=== PATIENT | male | born 1965 | race Two or more races ===

== ENCOUNTER 2025-01-23 22:27 | Emergency (ER) | payer MEDICAID ==
[~2025-01-23] VITALS: Ht 185.4 cm; Wt 103.4 kg
[2025-01-23 23:05] LABS: Hematocrit 44.8 % (41.0-53.0); Hemoglobin 15.9 g/dL (13.5-17.5); Mean Corpuscular Hemoglobin 31.8 pg (28.0-32.0); Mean Corpuscular Volume 89.2 fL (80.0-100.0); Nucleated Red Blood Cells % 0.2 %
--- NOTE | 2025-01-23 23:09 | ED.PDOC ---
General HPI Comments 59 year old male presents to the ED with a chief complaint of LT flank pain onset 2 days. Patient states he began experiencing LT flank pain radiates to LLQ 2 days ago as well as hematuria. Patient was seen at urgent care 1 day ago, was diagnosed with UTI. Patient was at work today, noticed pain had worsened, took Ibuprofen at 16:00 and 10 minutes prior to ED arrival, has not noticed improvement. PMHx HTN. Denies fever, chills, dysuria, nausea, vomiting, diarrhea, melena, hematemesis, headache, dizziness. No other associated symptoms, modifiers, recent injuries or sick contacts present at this time. Chief Complaint: Flank Pain Time Seen by MD: 22:55 Primary Care Provider: UNK Reviewed notes: Medications, Allergies Allergies: Coded Allergies: NO KNOWN ALLERGIES (Unverified , 12/18/13) Home Meds Active Scripts Sulfamethoxazole W/Trimethopri (Bactrim Ds Tablet) 1 Tab Tb, 1 TAB PO BID for 7 Days, #14 TAB Prov:BRAN WYNN MD 01/24/25 Tamsulosin Hcl (Flomax) 0.4 Mg Cap, 1 CAP PO DAILY for 30 Days, #30 CAP 11 Refills Prov:BRAN WYNN MD 01/24/25 Information Source: Patient Mode of Arrival: Ambulatory Severity: Moderate Timing: Days Duration: Since onset Prehospital treatment: Pain Meds (Ibuprofen) Onset: Spontaneous Symptoms: Hematuria, Other (LT flank pain) History of: UTI Location: (L)Flank Penile discharge: None Modifying factors: None associated signs and symptoms: Flank Pain, Back Pain, Hematuria Past Medical History PAST MEDICAL HISTORY: HTN Surgical History: Denies all surgeries Family History Family History: Unknown Social History Smoker: Non-Smoker Alcohol: Occasionally Drugs: Denies Drug Use Lives In: Home Constitutional: denies: chills, diaphoresis, fatigue, fever, malaise, sweats, weakness, others EENTM: denies: blurred vision, double vision, ear bleeding, ear discharge, ear drainage, ear pain, ear ringing, eye pain, eye redness, hearing loss, mouth pain, mouth swelling, nasal discharge, nose bleeding, nose congestion, nose pain, photophobia, tearing, throat pain, throat swelling, voice changes, others Respiratory: denies: cough, hemoptysis, orthopnea, SOB at rest, shortness of breath, SOB with excertion, stridor, wheezing, others Cardiovascular: denies: chest pain, dizzy spells, diaphoresis, Dyspnea on exertion, edema, irregular heart beat, left arm pain, lightheadedness, palpitations, PND, syncope, others Gastrointestinal: denies: abdomen distended, abdominal pain, blood streaked bowels, constipated, diarrhea, dysphagia, difficulty swallowing, hematemesis, melena, nausea, poor appetite, poor fluid intake, rectal bleeding, rectal pain, vomiting, others Genitourinary: reports: flank pain, hematuria; denies: burning, dysuria, frequency, incontinence, penile discharge, penile sore, pain, testicle pain, testicle swelling, urgency, others Neurological: denies: dizziness, fainting, headache, left sided numbness, left sided weakness, numbness, paresthesia, pre-existing deficit, right sided numbness, right sided weakness, seizure, speech problems, tingling, tremors, weakness, others Musculoskeletal: reports: back pain; denies: gout, joint pain, joint swelling, muscle pain, muscle stiffness, neck pain, others Integumetry: denies: bruises, change in color, change in hair/nails, dryness, laceration, lesions, lumps, rash, wounds, others Allergic/Immunocompromised: denies: Difficulty Healing, Frequent Infections, Hives, Itching, others Hematologic/Lymphatic: denies: anemia, blood clots, easy bleeding, easy bruising, swollen glands, others Endocrine: denies: excessive hunger, excessive sweating, excessive thirst, excessive urination, flushing, intolerance to cold, intolerance to heat, unexplained weight gain, unexplained weight loss, others Psychiatric: denies: anxiety, bipolar disorder, depression, hopeless, panic disorder, schizophrenia, sleepless, suicidal, others All Other Systems: Reviewed and Negative Physical Exam General Appearance: Normal HEENT: Normal ENT Inspection, Pharynx Normal, TMs Normal Neck: Full Range of Motion, Non-Tender, Normal, Normal Inspection Respiratory: Chest Non-Tender, Lungs Clear, No Accessory Muscle Use, No Respiratory Distress, Normal Breath Sounds Cardiovascular: No Edema, No JVD, No Murmur, No Gallop, Normal Peripheral Pulses, Regular Rate/Rhythm Breast Exam: Deferred Gastrointestinal: No Organomegaly, Non Tender, No Pulsatile Mass, Normal Bowel Sounds, Soft Genitalia: Deferred Pelvic: Deferred Rectal: Deferred Extremities: No calf tenderness, Normal capillary refill, Normal inspection, Normal range of motion, Non-tender, No pedal edema Musculoskeletal : Apperance: Normal Neurologic: Alert, 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 Was a procedure done?: No Differential Diagnosis Kidney stone (Female): Bowel obstruction, Cholelithiasis, Pancreatitis, Pyelonephritis, Urinary obstruction, Urolithiasis, Other X-Ray, Labs, Meds, VS Vital Signs Date Time Temp Pulse Resp B/P (MAP) Pulse Ox O2 Delivery O2 Flow Rate FiO2 01/24/25 01:25 98.4 63 14 151/58 (89) 96 98.4 01/24/25 01:25 63 14 96 Room Air* 0 21 01/23/25 22:27 97.9 72 18 159/89 95 97.9 Lab Test 01/23/25 22:55 01/23/25 22:35 Range/Units White Blood Count 7.5 4.4-10.8 10^3/uL Red Blood Count 5.02 4.5-5.90 10^6/uL Hemoglobin 15.9 13.5-17.5 g/dL Hematocrit 44.8 41.0-53.0 % Mean Corpuscular Volume 89.2 80.0-100.0 fL Mean Corpuscular Hemoglobin 31.8 28.0-32.0 pg Mean Corpuscular Hemoglobin Concent 35.6 32.0-36.0 g/dL Red Cell Distribution Width 13.2 11.8-14.3 % Platelet Count 211 140-450 10^3/uL Mean Platelet Volume 8.1 6.9-10.8 fL Neutrophils (%) (Auto) 56.9 37.0-80.0 % Lymphocytes (%) (Auto) 31.0 10.0-50.0 % Monocytes (%) (Auto) 9.5 0.0-12.0 % Eosinophils (%) (Auto) 2.1 0.0-7.0 % Basophils (%) (Auto) 0.5 0.0-2.0 % Neutrophils # (Auto) 4.3 1.6-8.6 10 ^3/uL Lymphocytes # (Auto) 2.3 0.4-5.4 10 ^3/uL Monocytes # (Auto) 0.7 0-1.3 10 ^3/uL Eosinophils # (Auto) 0.2 0-0.8 10 ^3/uL Basophils # (Auto) 0 0-0.2 10 ^3/uL Nucleated Red Blood Cells 0.2 % Sodium Level 138 136-145 mmol/L Potassium Level 4.0 3.5-5.1 mmol/L Chloride Level 101 98-107 mmol/L Carbon Dioxide Level 29 20-31 mmol/L Anion Gap 8 5-15 Blood Urea Nitrogen 15 9-23 mg/dL Creatinine 0.98 0.700-1.30 mg/dL Glomerular Filtration Rate Calc 90 >90 mL/min BUN/Creatinine Ratio 15.3 10.0-20.0 Serum Glucose 146 H 74-106 mg/dL Calcium Level 9.7 8.7-10.4 mg/dL Total Bilirubin 0.6 0.2-1.0 mg/dL Aspartate Amino Transferase (AST) 28 13-40 U/L Alanine Aminotransferase (ALT) 44 H 7-40 U/L Alkaline Phosphatase 62 46-116 U/L Total Protein 7.7 5.7-8.2 g/dL Albumin 4.9 H 3.2-4.8 g/dL Lipase 55 H 12-53 U/L Urine Color Dark-orange Yellow Urine Clarity Clear Clear Urine pH 5.5 5.0-9.0 Urine Specific [place] 1.028 1.001-1.035 Urine Protein 1+ H Negative Urine Ketones Negative Negative Urine Blood 2+ H Negative /uL Urine Nitrite 1+ H Negative Urine Bilirubin 1+ Negative Urine Urobilinogen 2 H Negative mg/dL Urine Leukocyte Esterase Negative Negative /uL Urine RBC 73 0 - 3 /hpf Urine Microscopic WBC 5 H 0-3 /HPF Urine Squamous Epithelial Cells Few <5 /hpf Urine Bacteria None seen None Seen /hpf Urine Mucus Few None Seen Urine Sperm Present None Seen /hpf Urine Glucose Normal Normal mg/dL Current Medications Medications (Trade) Dose Ordered Sig/Genet Route Start Time Stop Time Status Last Admin Tamsulosin HCl (Flomax) 0.4 mg ONCE ONCE PO 01/24/25 00:15 01/24/25 00:16 DC 01/24/25 01:25 Trimethoprim/ Sulfamethoxazole (Bactrim Ds Tablet) 1 tab ONCE ONCE PO 01/24/25 00:15 01/24/25 00:16 DC 01/24/25 01:26 Acetaminophen/ Hydrocodone Bitart ([place]off 10/325MG Tab) 1 tab ONCE ONCE PO 01/24/25 01:30 01/24/25 01:31 DC 01/24/25 01:34 [place] [address] Ph: [phone] DIAGNOSTIC IMAGING Diagnostic Imaging Report : [id number] Signed PATIENT: SANDIE CLANCY ACCT: [id number] UNIT: [id number] : 1965 LOC: ER ROOM / BED: / AGE / SEX: 59 / M ADM STATUS: REG ER SERVICE [id number] ORDERING PHYSICIAN: BRAN WYNN MD PROCEDURE(s): ABPL - CT AB PEL WO CON-NO ORAL OR IV REASON: left flank pain ORDER NUMBER(s): [id number], ACCESSION NUMBER(s): [id number] COMPUTERIZED TOMOGRAPHY ABDOMEN AND PELVIS WITHOUT CONTRAST REASON FOR EXAM: left flank pain COMPARISON: None TECHNIQUE: Spiral scans were acquired from the diaphragm to the symphysis pubis without intravenous contrast administration. 2-D coronal and sagittal reformatted images were provided. Radiation optimization: All CT scans at this facility use at least one of these dose optimization techniques: Automated exposure control mA and/or kV adjustment per patient size (includes targeted exams where dose is matched to clinical indication) or iterative reconstruction. RADIATION DOSE: CTDI: 15 mGy DLP: 910 mGy-cm FINDINGS: There is minimal dependent atelectasis in bilateral lower lobes. There is no pleural effusion . There is no pericardial effusion. The spleen is not enlarged. The liver is normal in size and contour. Evaluation of the abdominal organs is suboptimal in the absence of intravenous contrast. The gallbladder is surgically absent. Unenhanced appearance of the pancreas is unremarkable. The adrenal glands are normal. The kidneys are similar in size. There is trace left hydronephrosis. There is subtle inflammatory stranding about the distal left ureter. There is a 2 mm calculus in the distal left ureter at the ureterovesical orifice. The urinary bladder is decompressed and is not well evaluated. The prostate and seminal vesicles are within normal limits. The colonic stool burden is small. The appendix is normal. There is no pathologic distention of the small bowel. There is no pathologic lymphadenopathy in the abdomen or pelvis by size criteria. There is no abdominal aortic aneurysm. There is no free fluid identified. No acute osseous abnormality is identified. There are degenerative changes in the lumbar spine. IMPRESSION: There is a 2 mm calculus in the distal left ureter at the ureterovesical orif ice. Trace left hydronephrosis. No additional collecting system calculus is identified. ATED BY: RY KOVACS MD DICTATED DATE/TIME: 01/23/252320 SIGNED BY: RY KOVACS MD SIGNED DATE/TIME: 01/23/252320 CC: Time of 1ST Reevaluation: 23:25 Reevaluation 1ST: Unchanged Patient Education/Counseling: Diagnosis, Treatment, Prognosis Family Education/Counseling: No Family Present Additional Information The following tests were ordered, and results were reviewed by me: CBC, CMP, LIPASE, UA, CT AB PEL WO CON I reviewed and agreed with the following test results read by other providers:CT AB PEL WO CON I discussed treatment and results with medical personnel and: patient Comprehensive systems review obtained and negative except for what is stated in the HPI. SEPSIS Sepsis Screen Date sepsis recognized/suspect: Jan 23, 2025 Time Sepsis recognized/suspect: 2226 Recent Procedure: No On Antibiotic Therapy: No Respiratory Rate >20: No Heart Rate >90: No Temp<36 C (96.8 F) or >38.3 C: No SBP <90 or MAP <65 mmHG: No New Acute Mental Status Change: No Is the patient on CPAP, BIPAP,: No Physician Orders Ct Ab Pel Wo Con-No Oral Or Iv (01/23/25 22:50) Vital Signs Date Time Temp Pulse Resp B/P (MAP) Pulse Ox O2 Delivery O2 Flow Rate FiO2 01/24/25 01:25 98.4 63 14 151/58 (89) 96 98.4 01/24/25 01:25 63 14 96 Room Air* 0 21 01/23/25 22:27 97.9 72 18 159/89 95 97.9 Laboratory Tests Test 01/23/25 22:55 White Blood Count 7.5 10^3/uL (4.4-10.8) Medications Medications Dose Ordered Sig/Genet Route Start Time Stop Time Status Last Admin Dose Admin Acetaminophen/ Hydrocodone Bitart 1 tab ONCE ONCE PO 01/24/25 01:30 01/24/25 01:31 DC 01/24/25 01:34 Tamsulosin HCl 0.4 mg ONCE ONCE PO 01/24/25 00:15 01/24/25 00:16 DC 01/24/25 01:25 Trimethoprim/ Sulfamethoxazole 1 tab ONCE ONCE PO 01/24/25 00:15 01/24/25 00:16 DC 01/24/25 01:26 Departure 1 Departure Time of Disposition: 23:35 Impression: Primary Impression: Ureteral calculus, left Additional Impression: Ureteral colic Disposition: HOME / SELF CARE / HOMELESS Condition: Stable e-Prescriptions Sulfamethoxazole W/Trimethopri (Bactrim Ds Tablet) 1 Tab Tb 1 TAB PO BID for 7 Days, #14 TAB Prov: BRAN WYNN MD 01/24/25 Tamsulosin Hcl (Flomax) 0.4 Mg Cap 1 CAP PO DAILY for 30 Days, #30 CAP 11 Refills Prov: BRAN WYNN MD 01/24/25 Discharged With: Self Critical Care Note Critical Care Time?: No Stability Stability form required: No I personally scribed for BRAN WYNN MD ([email or web address]) on 01/23/25 at 23:09. Electronically submitted by Gerri Tsang ([email or web address]). I personally scribed for BRAN WYNN MD ([email or web address]) on 01/23/25 at 23:17. Electronically submitted by Gerri Tsang ([email or web address]). I personally scribed for BRAN WYNN MD ([email or web address]) on 01/24/25 at 00:03. Electronically submitted by Gerri Tsang ([email or web address]). BRAN WYNN MD Jan 23, 2025 23:09
[2025-01-23 23:23] LABS: Alanine Aminotransferase 44 U/L (7-40); Albumin 4.9 g/dL (3.2-4.8); Alkaline Phosphatase 62 U/L (46-116); Anion Gap 8 (5-15); BUN/Creatinine Ratio 15.3 (10.0-20.0); Blood Urea Nitrogen 15 mg/dL (9-23); Calcium 9.7 mg/dL (8.7-10.4); Carbon Dioxide 29 mmol/L (20-31); Chloride 101 mmol/L (98-107); Glucose 146 mg/dL (74-106); Lipase 55 U/L (12-53); Potassium 4.0 mmol/L (3.5-5.1); Sodium 138 mmol/L (136-145); Total Protein 7.7 g/dL (5.7-8.2)
[2025-01-23 23:24] LABS: Bilirubin, Total 0.6 mg/dL (0.2-1.0)
--- NOTE | 2025-01-23 23:24 | DVH ---
COMPUTERIZED TOMOGRAPHY ABDOMEN AND PELVIS WITHOUT CONTRAST REASON FOR EXAM: left flank pain COMPARISON: None TECHNIQUE: Spiral scans were acquired from the diaphragm to the symphysis pubis without intravenous c ontrast administration. 2-D coronal and sagittal reformatted images were provided. Radiation optimiza tion: All CT scans at this facility use at least one of these dose optimization techniques: Automated exposure control mA and/or kV adjustment per patient size (includes targeted exams where dose is mat ched to clinical indication) or iterative reconstruction. RADIATION DOSE: CTDI: 15 mGy DLP: 910 mGy-cm FINDINGS: There is minimal dependent atelectasis in bilateral lower lobes. There is no pleural effusion . Ther e is no pericardial effusion. The spleen is not enlarged. The liver is normal in size and contour. Evaluation of the abdominal orga ns is suboptimal in the absence of intravenous contrast. The gallbladder is surgically absent. Unenha nced appearance of the pancreas is unremarkable. The adrenal glands are normal. The kidneys are simil ar in size. There is trace left hydronephrosis. There is subtle inflammatory stranding about the dis rafael left ureter. There is a 2 mm calculus in the distal left ureter at the ureterovesical orifice. T he urinary bladder is decompressed and is not well evaluated. The prostate and seminal vesicles are within normal limits. The colonic stool burden is small. The appendix is normal. There is no patholog ic distention of the small bowel. There is no pathologic lymphadenopathy in the abdomen or pelvis by size criteria. There is no abdominal aortic aneurysm. There is no free fluid identified. No acute o sseous abnormality is identified. There are degenerative changes in the lumbar spine. IMPRESSION: There is a 2 mm calculus in the distal left ureter at the ureterovesical orifice. Trace left hydronep hrosis. No additional collecting system calculus is identified.
[2025-01-24] LABS: Urine Protein, UAD 1+ (Negative)
[2025-01-24] MEDS ORDERED: TAMS-35 PO (00:16)
[2025-01-24] MEDS ORDERED: BACDST PO (00:17)
[2025-01-24 01:25] VITALS: BP 151/58; PULSE 63; RESP 14; TEMP 98.4; O2SAT 96
[2025-01-24] MEDS: TAMSULOSIN HYDROCHLORIDE 0.4 MG CAP PO ONE (01:25)
[2025-01-24] MEDS: SULFAMETHOX W/TRIMETH(800/160MG) DS TAB PO ONE (01:26)
[2025-01-24] MEDS: HYDROcodone-ACET 10/325MG TAB PO ONE (01:34)
== END 2025-01-24 01:42 | disposition home or self-care (01) ==
LOC: ER 22:27
DX: N20.1 Calculus of ureter (principal); I10 Essential (primary) hypertension; F10.90 Alcohol use, unspecified, uncomplicated; Z79.899 Other long term (current) drug therapy; Z87.440 Personal history of urinary (tract) infections; Y90.9 Presence of alcohol in blood, level not specified
CPT/HCPCS: 36415; 74176; 80053; 81001; 83690; 85025